=== PATIENT | female | born 1965 | race Two or more races ===

== ENCOUNTER 2025-02-19 09:39 | Day surgery (SDC) | payer SELFPAY ==
[2025-02-17 15:23] LABS: Hematocrit 39.5 % (36.0-46.0); Hemoglobin 13.6 g/dL (12.2-16.2); Mean Corpuscular Hemoglobin 31.3 pg (28.0-32.0); Mean Corpuscular Volume 91.0 fL (80.0-100.0); Nucleated Red Blood Cells % 0.0 %
[2025-02-17 15:41] LABS: INR 1.0 (0.9-1.15); Partial Thromboplastin Time 27.3 SEC (24.5-34.5); Prothrombin Time 10.6 sec (9.3-11.8)
[2025-02-17 16:12] LABS: Alanine Aminotransferase 18 U/L (7-40); Albumin 4.2 g/dL (3.2-4.8); Alkaline Phosphatase 61 U/L (46-116); Anion Gap 8 (5-15); BUN/Creatinine Ratio 26.7 (10.0-20.0); Bilirubin, Total 0.5 mg/dL (0.2-1.0); Calcium 10.0 mg/dL (8.7-10.4); Carbon Dioxide 29 mmol/L (20-31); Glucose 86 mg/dL (74-106); Potassium 4.6 mmol/L (3.5-5.1); Sodium 144 mmol/L (136-145); Total Protein 7.0 g/dL (5.7-8.2)
[2025-02-17 16:14] LABS: Blood Urea Nitrogen 24 mg/dL (9-23); Chloride 107 mmol/L (98-107)
[~2025-02-19] VITALS: Ht 165.1 cm; Wt 65.8 kg
[~2025-02-19 09:39] MED LIST: ATOR10TA52 PO; FLUMAZENIL 0.1 MG/ML INJ 10ML MDV IV ONE; GABA-1308 PO; IBU600T PO; METO25TA93 PO; NALOXONE HCL 0.4 MG/ML VIAL ONE; OMEP-434 PO; SODIUM CHLORIDE LOCK 10 ML ONE
[2025-02-19 13:31] VITALS: PULSE 61; RESP 17; O2SAT 99
[2025-02-19] MEDS: LIDOCAINE VISCOUS 2% 15ML UD ONE (13:53)
[2025-02-19] MEDS: MIDAZOLAM HCL 5 MG/ML-1ML VIAL ONE (13:54)
[2025-02-19] MEDS: fentaNYL CITRATE 100 MCG/2 ML VL ONE (13:54)
[2025-02-19] MEDS: diphenhydrAMINE HCL 50 MG/1 ML VL ONE (13:54)
[2025-02-19 14:10] VITALS: PULSE 61; RESP 12; TEMP 97.1; O2SAT 95
--- NOTE | 2025-02-19 14:14 | DVHOP2 ---
Operative Report DATE OF OPERATION: 02/19/25 PROCEDURE: Upper Endoscopy with biopsy. PREOPERATIVE INDICATION: The patient is a 59 -year-old female undergoing endoscopy for chronic GERD POSTOPERATIVE DIAGNOSES: 1. 4 cm sliding-type hiatal hernia with slightly irregular squamocolumnar junction 2. Minimal gastroduodenitis PROCEDURE PERFORMED BY: Sai Peterson GI NURSE: [place] SCOPE: Olympus videoendoscope. ASA CLASS: 3 PREOPERATIVE MEDICATIONS: Versed 2 mg IV fentanyl 50 mg IV and Benadryl 50 mg IV I administered moderate sedation throughout this _8_ minutes procedure. An independent trained observer pushed medications at my direction, and monitored the patient's level of consciousness and physiological status throughout. PROCEDURE IN DETAIL: After obtaining an informed consent, the patient was placed on left lateral decubitus position. The patient was then sedated with the above medications. A bite block was placed between her teeth. The endoscope was then passed through the oropharynx, into the esophagus, and through the stomach and pylorus up to the second and third part of the duodenum. The endoscope was then withdrawn. Second and 3rd part of the duodenum were normal and the duodenal bulb showed minimal duodenitis. Duodenal biopsies were obtained The pre-pyloric area antrum and body showed mild gastritis. Gastric biopsies were obtained. On retroflexion the fundus cardia were normal. The endoscope was then withdrawn into distal esophagus where the patient had a 4 cm sliding-type hiatal hernia with slightly irregular squamocolumnar junction GE Junction biopsies were obtained. The remaining distal and proximal esophagus and oropharynx were unremarkable The patient tolerated the procedure well without difficulty. COMPLICATIONS : None SPECIMENS: Duodenal biopsies Gastric biopsies GE junction biopsies DISPOSITION: Stable D/C to home PLAN: 1. Await for biopsy result 2. Will place pt on Protonix 40 mg p.o. twice a day 3. Carafate 1 g p.o. twice a day 4. Lifestyle and dietary modifications for GERD 5. DC aspirin NSAIDs smoking alcohol 6. Resume GI soft diet advance as tolerated 7. Outpatient follow up with me in 4-6 weeks to review results and discuss further management SAI PETERSON MD Feb 19, 2025 14:14
[2025-02-19 15:05] VITALS: BP 123/79; PULSE 63; RESP 12; O2SAT 98
[2025-02-19] MEDS ORDERED: ONDANSETRON HCL 4 MG/2 ML VIAL ONE (15:22)
[2025-02-19] MEDS: ONDANSETRON HCL 4 MG/2 ML VIAL IV ONE (15:24)
== END 2025-02-19 15:40 | disposition home or self-care (01) ==
LOC: SUR 09:39
PROVIDERS: ATTEND Internal Medicine Gastroenterology
DX: K21.00 Gastro-esophageal reflux disease with esophagitis, without bleeding (principal); K29.50 Unspecified chronic gastritis without bleeding; K29.90 Gastroduodenitis, unspecified, without bleeding; K31.89 Other diseases of stomach and duodenum; K44.9 Diaphragmatic hernia without obstruction or gangrene; I10 Essential (primary) hypertension; E78.00 Pure hypercholesterolemia, unspecified; M19.90 Unspecified osteoarthritis, unspecified site; Z79.899 Other long term (current) drug therapy; Z90.710 Acquired absence of both cervix and uterus; Z98.891 History of uterine scar from previous surgery; Z98.890 Other specified postprocedural states
CPT/HCPCS: 36415; 43239; 80053; 85025; 85610; 85730; 88305; 88313; 88342; A4649; J1200; J2250; J2405; J3010; J7030; J7040